=== PATIENT | female | born 1945 | race Caucasian/White ===

== ENCOUNTER 2016-10-24 14:38 | Emergency (ER) | payer MEDICARE, OTHER | END 2016-10-24 18:35 | disposition home or self-care (01) | LOC: ER1 14:38 | DX: M25.562 Pain in left knee (principal); M06.9 Rheumatoid arthritis, unspecified; Z88.5 Allergy status to narcotic agent; Z79.899 Other long term (current) drug therapy | CPT/HCPCS: 73564; 96372; 99283; J1100 ==

== ENCOUNTER → 2016-11-03 | Outpatient (CLI) | payer MEDICARE, OTHER | LOC: KOH-I 08:33 | DX: M25.562 Pain in left knee (principal); S83.242A Other tear of medial meniscus, current injury, left knee, initial encounter | CPT/HCPCS: 73721 ==

== ENCOUNTER → 2021-04-03 | Outpatient (CLI) | payer MEDICARE ==
[~2021-04-03] MED LIST: ASPIRIN CHEWABL81 MG PO; BENICAR 20 MG T20 MG PO; CELECOXIB100 MG PO; CLARITIN10 MG PO; DICLOFENAC POTA50 MG PO; DOCUSATE SODIU250 MG PO; ELIQUIS2.5 MG PO; FERROUS SULFAT325 MG PO; FLONASE 0.05% N16 GM; FUROSEMIDE20 MG PO; LIPITOR TAB 2020 MG PO; MAPAP325 MG PO; NORVASC 5 MG TAB5 MG PO; PERCOCET 7.5-31 EACH PO; TENORMIN 25 MG25 MG PO; TRAMADOL HCL50 MG PO; TYLENOL 500 MG500 MG PO; ZOFRAN4 MG PO; ZYRTEC10 M2 PO
== END ==
LOC: MAMO 09:30
DX: Z12.31 Encounter for screening mammogram for malignant neoplasm of breast (principal)
CPT/HCPCS: 77063; 77067